=== PATIENT | male | born 1960 | race Native Hawaiian/Other Pacific Islander ===

== ENCOUNTER 2018-06-19 08:55 | Outpatient (CLI) | payer BC ==
[~2018-06-19 08:55] MED LIST: ALLEGRA ALRG180 M1 PO; BYSTOLIC5 MG PO; HYDROCHLOROT12.5 M1 OR; HYDROCHLOROT12.5 M1 PO; LOTENSIN HCT1 TA1 PO; SIMV40TA57 PO; TAMS0.4C PO; VIAGRA100 MG OR; VIT C250 MG OR
== END 2018-06-19 19:24 | disposition home or self-care (01) ==
LOC: RESP 08:55
DX: R05 Cough (principal); I10 Essential (primary) hypertension
CPT/HCPCS: 93005

== ENCOUNTER 2021-03-31 15:00 | Outpatient (CLI) | payer BC | END 2021-03-31 16:00 | disposition home or self-care (01) | LOC: LAB 15:00 | PROVIDERS: ATTEND Internal Medicine Infectious Disease | DX: A49.02 Methicillin resistant Staphylococcus aureus infection, unspecified site (principal); T84.50XA Infection and inflammatory reaction due to unspecified internal joint prosthesis, initial encounter; Z96.641 Presence of right artificial hip joint | CPT/HCPCS: 80202 ==

== ENCOUNTER 2021-04-19 15:31 | Outpatient (CLI) | payer BC ==
[2021-04-19 15:53] LABS: PLATELET COUNT 515 K/uL (142-355)
[2021-04-19 16:03] LABS: POTASSIUM 3.7 mmol/L (3.6-5.2)
== END 2021-04-19 19:21 | disposition home or self-care (01) ==
LOC: LAB 15:31
PROVIDERS: ATTEND Internal Medicine Infectious Disease
DX: Z47.1 Aftercare following joint replacement surgery (principal); T84.50XA Infection and inflammatory reaction due to unspecified internal joint prosthesis, initial encounter; Z96.643 Presence of artificial hip joint, bilateral
CPT/HCPCS: 80053; 80202; 85027; 86140

== ENCOUNTER 2021-04-25 09:42 | Outpatient (CLI) | payer BC ==
[2021-04-25 10:21] LABS: POTASSIUM 4.1 mmol/L (3.6-5.2)
[2021-04-25 10:35] LABS: PLATELET COUNT 526 K/uL (142-355)
== END 2021-04-25 21:23 | disposition home or self-care (01) ==
LOC: LAB 09:42
PROVIDERS: ATTEND Internal Medicine Infectious Disease
DX: T84.50XA Infection and inflammatory reaction due to unspecified internal joint prosthesis, initial encounter (principal); Z96.641 Presence of right artificial hip joint
CPT/HCPCS: 80053; 80202; 85027; 86140

== ENCOUNTER 2021-04-28 10:02 | Outpatient (CLI) | payer BC ==
[2021-04-28 10:27] LABS: PLATELET COUNT 561 K/uL (142-355)
== END 2021-04-28 19:09 | disposition home or self-care (01) ==
LOC: LAB 10:02
PROVIDERS: ATTEND Internal Medicine Infectious Disease
DX: T84.50XA Infection and inflammatory reaction due to unspecified internal joint prosthesis, initial encounter (principal); Z96.641 Presence of right artificial hip joint
CPT/HCPCS: 80053; 80202; 85027; 86140

== ENCOUNTER 2021-05-09 10:33 | Outpatient (CLI) | payer BC ==
[2021-05-09 10:50] LABS: PLATELET COUNT 486 K/uL (142-355)
[2021-05-09 11:00] LABS: POTASSIUM 4.4 mmol/L (3.6-5.2)
== END 2021-05-09 21:01 | disposition home or self-care (01) ==
LOC: LAB 10:33
PROVIDERS: ATTEND Internal Medicine Infectious Disease
DX: Z51.81 Encounter for therapeutic drug level monitoring (principal); Z47.1 Aftercare following joint replacement surgery; Z96.641 Presence of right artificial hip joint; T84.50XA Infection and inflammatory reaction due to unspecified internal joint prosthesis, initial encounter
CPT/HCPCS: 80053; 80202; 85027; 86140